=== PATIENT | female | born 1940 | race Two or more races ===

== ENCOUNTER 2021-01-07 16:08 | Emergency (ER) | payer MEDICARE, OTHER ==
[~2021-01-07] VITALS: Ht 160 cm; Wt 77.1 kg
[2021-01-07] MEDS ORDERED: SODIUM CHLORIDE 0.9% 1,000 ML IVB ONE (16:45)
[2021-01-07] MEDS ORDERED: SODIUM CHLORIDE 0.9% 1,000 ML IV ONE (16:45)
[2021-01-07 17:02] LABS: Basophils # (auto) 0 10 ^3/uL (0-0.2); Basophils % (auto) 0.2 % (0.0-2.0); Eosinophils # (auto) 0 10 ^3/uL (0-0.8); Hematocrit 45.6 % (36.0-46.0); Hemoglobin 15.6 g/dL (12.2-16.2); Lymphocytes # (auto) 2.1 10 ^3/uL (0.4-5.4); Lymphocytes % (auto) 8.3 % (10.0-50.0); Mean Corpuscular Hemoglobin 33.2 pg (28.0-32.0); Mean Corpuscular Hgb Conc. 34.1 g/dL (32.0-36.0); Mean Corpuscular Volume 97.3 fL (80.0-100.0); Monocytes # (auto) 2.1 10 ^3/uL (0-1.3); Monocytes % (auto) 8.4 % (0.0-12.0); Neutrophils # (auto) 20.6 10 ^3/uL (1.6-8.6); Neutrophils % (auto) 83.1 % (37.0-80.0); Red Blood Cells 4.69 10^6/uL (4.0-5.20); Red Cell Distribution Width 13.1 % (11.8-14.3); White Blood Cell 24.8 10^3/uL (4.4-10.8)
[2021-01-07] MEDS ORDERED: metroNIDAZOLE 500MG/100ML 100 ML IV ONE (17:15)
[2021-01-07] MEDS ORDERED: cefTRIAXone 1GM/50ML D5W 50 ML IV ONE (17:15)
[2021-01-07 17:16] LABS: Albumin 3.2 g/dL (3.4-5.0); Potassium 4.3 mmol/L (3.5-5.1)
[2021-01-07 17:21] LABS: BUN/Creatinine Ratio 16.9; Bilirubin, Total 0.5 mg/dL (0.2-1.0); Total Protein 7.3 g/dL (6.4-8.2)
[2021-01-07] MEDS: ONDANSETRON HCL 4 MG/2 ML VIAL ONE ×2 (17:37→17:41)
[2021-01-07] MEDS: MORPHINE SULFATE 4 MG/ML SYR/VIAL ONE ×2 (17:37→17:41)
[2021-01-07] MEDS ORDERED: MORPHINE SULFATE 4 MG/ML SYR/VIAL IV ONE (17:45)
[2021-01-07] MEDS ORDERED: ONDANSETRON HCL 4 MG/2 ML VIAL IV ONE (17:45)
[2021-01-08 00:29] VITALS: BP 128/72
[2021-01-08] MEDS ORDERED: MORPHINE SULFATE 4 MG/ML SYR/VIAL IV ONE (00:30)
== END 2021-01-08 00:47 | disposition short-term general hospital (02) ==
LOC: ER 16:08 → EDBD 16:08 → ER 01-08 00:47
DX: K52.9 Noninfective gastroenteritis and colitis, unspecified (principal); A41.9 Sepsis, unspecified organism; R73.9 Hyperglycemia, unspecified; I10 Essential (primary) hypertension; Z90.49 Acquired absence of other specified parts of digestive tract; Z20.822 Contact with and (suspected) exposure to COVID-19
CPT/HCPCS: 36415; 71045; 74176; 80053; 83605; 83690; 84484; 85025; 87040; 87426; 93005; 96365; 96368; 96375; 96376; 99285; J0696; J2270; J2405; J3490